=== PATIENT | female | born 1930 | race Caucasian/White ===

== ENCOUNTER 2016-09-25 10:28 | Inpatient (IN) | payer MEDICARE ==
[2016-09-25] VITALS (9 sets, daily range): BP systolic 124–152; BP diastolic 77–94; PULSE 95–140; RESP 14–22; O2SAT 90–100
[~2016-09-25] VITALS: Ht 162.6 cm; Wt 73.4 kg
[~2016-09-25 10:28] MED LIST: ASPI-973 PO; ATEN50TA PO; HYDR25TA4 PO; LAN125 PO; LATA2.5D6 OP; LISI40TA PO
--- NOTE | 2016-09-25 11:02 | ED.REPORT ---
HPI-General Illness Date of Service September 25, 2016 ED Provider: Berto Banks DO The patient is an 85 year old female with history of atrial fibrillation on carvedilol and Coumadin, pulmonary embolism, hypertension, and colon cancer, who presents to the emergency department complaining of shortness of breath that began 6 days ago. She has also experienced chest pressure. Her symptoms are exacerbated with exertion, movement, and bending. She is not able to walk more than 50 feet due to her breathing. She also reports weight gain and lower extremity swelling. She denies fever, chills, productive cough, abdominal pain, nausea or vomiting. She denies history of congestive heart failure. She is not on home oxygen. Nursing Notes Stated Complaint: CHEST PRESSURE Chief Complaint: Respiratory Distress Nursing Notes Reviewed: Yes Allergies: Coded Allergies: No Known Allergies (Verified , 02/04/14) Scheduled Carvedilol (Carvedilol) 12.5 Mg Tablet 12.5 MG PO BID Hydrochlorothiazide (Hydrochlorothiazide) 25 Mg Tablet 25 MG PO DAILY Latanoprost (Latanoprost) 2.5 Ml Drops 1 GTT OP HS Lisinopril (Lisinopril) 40 Mg Tablet 40 MG PO DAILY Warfarin Sodium (Coumadin) 2.5 Mg Tablet 2.5 MG PO Tu Warfarin Sodium (Coumadin) 5 Mg Tablet 5 MG PO SuMoWeThFrSa@1700 General Time Seen by MD: 11:00 Chief Complaint Other (dyspnea on exertion) Hx Obtained From: Patient Arrived By: Walk-in Sudden in Onset?: No Onset Occurred: 6 days ago Symptom Duration: Since onset Location: : Chest Quality: Pressure Severity: Current: Moderate Severity: Maximum: Severe Recent Healthcare: No recent doctor visit, No recent hospitalization Similar Sx Previous: No Past Medical History Past Medical History Notes: DNR Past Medical History Atrial fibrillation on carvedilol and Coumadin Colon cancer Hypertension Pulmonary embolism Iron deficiency anemia Family History Noncontributory Smoking History Former Smoker Social History Other Social History: Good social support, , Local resident Ambulatory Status Independent Review of Systems +weight gain Full Review of Systems Constitutional: Denies: Chills, Fever Respiratory: Reports: Dyspnea on exertion, Shortness of breath, Denies: Prod cough, bloody, Prod cough, brown, Prod cough, clear, Prod cough , green, Prod cough, white, Prod cough, yellow Cardiovascular: Reports: Chest pain GI: Denies: Abdominal pain, Nausea, Vomiting Musculoskeletal: Reports: Extremity swelling Complete sys rev & neg: except as marked. Physical Exam Vital Signs Vital Signs Date Time Temp Pulse Resp B/P Pulse Ox O2 Delivery O2 Flow Rate FiO2 09/25/16 13:34 122 20 94 Room Air 09/25/16 12:03 101 22 140/94 99 Nasal Cannula 2 09/25/16 10:32 36.4 140 14 152/92 100 Room Air Initial VS: Reviewed Head / Eyes: Atraumatic, Normocephalic, PERRL ENT: Mucous membranes moist, Conjunctiva normal, No scleral icterus Abdomen / GI: Soft, Non-tender, No guarding, No rebound, No distention Extremities: Vascular intact, Neuro intact Skin: Warm, Dry, No cyanosis Neurologic: Alert, Oriented, Nonfocal Psychiatric: Mood/affect normal, Behavior normal, Normal thought content General/Constitutional: Awake, Alert, Cooperative Neck: Supple Neck Vascular: Positive: JVD moderate Respiratory / Chest: Atraumatic, Breath sounds NL, Breath sounds = bilat, No respiratory distress, No rales, No rhonchi, No wheezing, No retractions, No stridor, No chest tenderness, No chest wall deformity Heart Rate / Rhythm: Positive: Irreg irregular rhythm, Tachycardia Lower Ext Edema: Positive: Bilateral 2+ Interpretation & Diagnostics Lab Results Interpretation Result Diagram: 09/25/16 1139 09/25/16 1139 Test 09/25/16 11:39 09/25/16 12:00 White Blood Count 11.1th/mm3 (3.8-10.1) Red Blood Count 4.40mil/mm3 (3.90-5.20) Hemoglobin 13.3g/dL (12.0-15.6) Hematocrit 41.9% (35.0-46.0) Mean Corpuscular Volume 95.2fL (81-100) Mean Corpuscular Hemoglobin 30.2pg (27.0-35.0) Mean Corpuscular Hemoglobin Concent 31.7% (32.0-37.0) Red Cell Distribution Width 13.7% (12.3-15.4) Platelet Count 195bil/L (150-400) Neutrophils (%) (Auto) 77.1% (40-74) Lymphocytes (%) (Auto) 14.3% (14-46) Monocytes (%) (Auto) 7.0% (4-12) Eosinophils (%) (Auto) 1.3% (0-5) Basophils (%) (Auto) 0.2% (0-3) Prothrombin Time 18.2sec (8.1-12.5) Prothromb Time International Ratio 1.68ratio Sodium Level 140mEq/L (134-144) Potassium Level 5.0mEq/L (3.5-5.2) Chloride Level 100mEq/L (97-108) Carbon Dioxide Level 22mmol/L (18-29) Blood Urea Nitrogen 41mg/dL (8-27) Creatinine 1.56mg/dL (0.57-1.00) Estimat Glomerular Filtration Rate 45mL/min (>59) Glucose Level 134mg/dL (60-99) Calcium Level 9.5mg/dL (8.5-10.1) Magnesium Level 1.7mg/dL (1.6-2.6) Total Bilirubin 0.6mg/dL (0.0-1.2) Aspartate Amino Transf (AST/SGOT) 32U/L (0-50) Alanine Aminotransferase (ALT/SGPT) 37U/L (0-32) Alkaline Phosphatase 140U/L (25-165) Troponin T < 0.010ug/L (0.0-0.011) Pro-B-Type Natriuretic Peptide 40465jo/mL (0-738) Total Protein 7.4g/dL (6.4-8.4) Albumin 4.1g/dL (3.4-5.0) Hold Diallo Top Tube Received (Received) ECG Interpretation ECG Interpretation: Atrial flutter with a variable conduction Time: 11:20 Interpreted by: ED physician X-Ray Chest Interpretation Chest Xray Interpretation: IMPRESSION: Small left pleural effusion with adjacent atelectasis. Diffuse interstitial changes Dictated by: Vic Irving M.D. on 09/25/2016 at 12:07 Interpretation / Wet Read by: Interpret - Radiologist Re-Eval/Medical Decision Med Decision/Clinical Course Appears to be decompensated congestive heart failure. Patient will be admitted. Source of Hx: Old records, Family Time of Eval: 13:35 Re-Evaluation/Progress Note: The patient dropped to 93 % when she stood up for her road test. Time of Eval: 13:40 Re-Evaluation/Progress Note: Rechecked the patient. Discussed plan for admission. All questions were addressed. Time of Eval: 14:32 Re-Evaluation/Progress Note: Discussed code status. The patient is DNR. Consultation : Referral / Consult Name: Richard Ross Consulted With: Hospitalist Requested Call at: 13:35 Call Returned at: 13:50 Manager Security: Will see patient, Agrees with eval, Agrees with plan, Accepts admit Counseled Regarding: Diagnosis, Lab results, Need for admission Discharge & Departure Primary Impression: Atrial fibrillation with rapid ventricular response Additional Impression: CHF (congestive heart failure) Congestive heart failure type: unspecified congestive heart failure type Congestive heart failure chronicity: unspecified congestive heart failure chronicity Qualified Code: I50.9 - Heart failure, unspecified Disposition: ADMITTED TO HOSPITAL Discharge Condition All VS Reviewed: Yes Condition: Stable Referrals: Charbel Donahue MD (PCP) Scribe Attestation Portions of this note were transcribed by Rayne Brownlee. I, Dr. Banks personally performed the history, physical exam and medical decision-making; I reviewed and confirmed the accuracy of the information in the transcribed note. Signed by: Amado Taylor, 09/25/2016 at 1435. copies to: Charbel Donahue MD, Timothy S DO September 25, 2016 11:01 Rayne Brownlee September 25, 2016 11:11
[2016-09-25] MEDS: MeTOProlol 1 mg/mL 5 mL Inj IVPUSH SCH ×2 (11:28→12:00)
[2016-09-25 11:45] LABS: BASOPHILS % (AUTO) 0.2 % (0-3); EOSINOPHILS % (AUTO) 1.3 % (0-5); Mean Corpuscular Hemoglobin 30.2 pg (27.0-35.0); Mean Corpuscular Volume 95.2 fL (81-100); NEUTROPHILS % (AUTO) 77.1 % (40-74); Platelet Count 195 bil/L (150-400)
[2016-09-25 12:01] LABS: INR 1.68 ratio
--- NOTE | 2016-09-25 12:10 | DRSVH ---
PROCEDURE: X-RAY CHEST ONE VIEW, PORTABLE ([id number]) INDICATIONS: cp, sob TECHNIQUE: One view of the chest was acquired. COMPARISON: [facility], CR, XR CHEST 1V PORTABLE, 01/09/2016, 1:44 PM. [facility], CR, CHEST 1VW (PORTABLE), 02/10/2014, 16:22. FINDINGS: Surgical changes and devices: None. Lungs and pleura: Small left pleural effusion with adjacent atelectasis. Diffuse interstitial change. No pneumothorax. Mediastinum: Mediastinal contours appear normal. Heart size is normal. Bones and chest wall: No suspicious bony lesions. Chronic appearing bilateral seventh rib fractures Overlying soft tissues appear unremarkable. IMPRESSION: Small left pleural effusion with adjacent atelectasis. Diffuse interstitial changes Dictated by: Vic Irving M.D. on 09/25/2016 at 12:07 Approved by: Vic Irving M.D. on 09/25/2016 at 12:09
[2016-09-25 12:54] LABS: Magnesium 1.7 mg/dL (1.6-2.6)
[2016-09-25 13:05] LABS: TROPONIN T < 0.010 ug/L (0.0-0.011)
[2016-09-25] MEDS ORDERED: Furosemide 10 mg/mL 10 mL Inj IVPUSH ONE (13:10)
[2016-09-25] MEDS ORDERED: CARV12.52 PO (14:18)
[2016-09-25] MEDS ORDERED: WARF5TAB PO (14:23)
[2016-09-25] MEDS ORDERED: WARF2.5T PO (14:23)
[2016-09-25] MEDS ORDERED: Alum-Mag Hydrox-Simeth 30 mL Suspension PO PRN ×2 (14:35→18:30)
[2016-09-25] MEDS ORDERED: Ondansetron 2 mg/mL 2 mL Inj IVPUSH PRN ×2 (14:35→18:30)
--- NOTE | 2016-09-25 14:40 | NUR ---
Admit to room 3023 Pt arrived in w/ch from ER Son present at time of arrival Pt able to stand for weight and amb to bed. A&Ox4 Oriented to room, call light. Placed tele and alerted electronic device monitor
--- NOTE | 2016-09-25 15:10 | NUR ---
Lasix Not given in ER, Texted MD to clarify if should be given. Addendum: 09/25/16 at 1513 by BERHANE HOLDEN RN MD into see patient
--- NOTE | 2016-09-25 17:43 | NUR ---
UA/clarify teresaix JOSE sent Sent text to clarify if MD wanted lasix for patient. Addendum: 09/25/16 at 1745 by BERHANE HOLDEN RN New orders coming thru now.
[2016-09-25 18:27] LABS: APPEARANCE,URINE CLEAR (CLEAR,HAZY); COLOR,URINE YELLOW (YELLOW); OCCULT BLOOD,URINE TRACE (NEGATIVE); UROBILINOGEN,URINE NORMAL (NORMAL)
--- NOTE | 2016-09-25 18:27 | PCM.HPMED ---
Subjective Date of Service September 25, 2016 Primary Provider: Admitting Physician: Richard Ross Primary Care Physician: Colt Hussein MD Attending Physician: Richard Ross Chief Complaint: shortness of breath History of Present Illness: 85-year-old female with a history of chronic atrial fibrillation for 20+ years, on Coumadin, colon cancer post right colon resection presents with 4 days of increasing shortness of breath and generalized weakness. She also reports increase weight and bilateral lower extremity edema over the past few months. Her symptoms are exacerbated with exertion. She called her PCP's office today and was instructed to come to the hospital. On presentation to the ED she was found to be in Afirb with RVR. She reportedly received 3 rounds of IV Lopressor before lowering her heart rate. IV Lasix was ordered but not given yet. She denies any lower extremity pain or pleuritic chest pain. She does report chest pain with exertion that has been going on for the past 2 years and is not any worse than usual. She denies any chest pain at rest. Review of Systems: Constitutional: Negative, except as otherwise mentioned in the history above. Ophthalmologic: Negative, except as otherwise mentioned in the history above. Cardiovascular: Negative, except as otherwise mentioned in the history above. Respiratory: Negative, except as otherwise mentioned in the history above. Gastrointestinal: Negative, except as otherwise mentioned in the history above. Genitourinary: Negative, except as otherwise mentioned in the history above. Musculoskeletal: Negative, except as otherwise mentioned in the history above. Neurological: Negative, except as otherwise mentioned in the history above. Psychiatric: Negative, except as otherwise mentioned in the history above. Hematologic/Lymphatic: Negative, except as otherwise mentioned in the history above. Allergic/Immunologic: Negative, except as otherwise mentioned in the history above. Allergies Coded Allergies: No Known Allergies (Verified , 02/04/14) Home Medications Warfarin Sodium 2.5 Mg Tablet (Coumadin) 2.5 Mg PO Tu Warfarin Sodium 5 Mg Tablet (Coumadin) 5 Mg PO SuMoWeThFrSa@1700 Carvedilol 12.5 Mg Tablet 12.5 Mg PO BID Lisinopril 40 Mg Tablet 40 Mg PO DAILY Hydrochlorothiazide 25 Mg Tablet 25 Mg PO DAILY Latanoprost 2.5 Ml Drops 1 Gtt OP HS Exam Vital Signs & I/O Vital Sign- Last 8 Hours Date Time Temp Pulse Resp B/P Pulse Ox O2 Delivery O2 Flow Rate FiO2 09/25/16 17:42 36.3 95 18 135/85 91 Room Air 09/25/16 15:16 105 09/25/16 15:14 105 09/25/16 14:48 36.3 106 20 139/82 93 Room Air 09/25/16 13:34 122 20 94 Room Air 09/25/16 12:03 101 22 140/94 99 Nasal Cannula 2 Lab & Micro Results Laboratory Tests Test 09/25/16 11:39 09/25/16 12:00 09/25/16 17:43 09/25/16 17:59 White Blood Count 11.1th/mm3 (3.8-10.1) Red Blood Count 4.40mil/mm3 (3.90-5.20) Hemoglobin 13.3g/dL (12.0-15.6) Hematocrit 41.9% (35.0-46.0) Mean Corpuscular Volume 95.2fL (81-100) Mean Corpuscular Hemoglobin 30.2pg (27.0-35.0) Mean Corpuscular Hemoglobin Concent 31.7% (32.0-37.0) Red Cell Distribution Width 13.7% (12.3-15.4) Platelet Count 195bil/L (150-400) Neutrophils (%) (Auto) 77.1% (40-74) Lymphocytes (%) (Auto) 14.3% (14-46) Monocytes (%) (Auto) 7.0% (4-12) Eosinophils (%) (Auto) 1.3% (0-5) Basophils (%) (Auto) 0.2% (0-3) Prothrombin Time 18.2sec (8.1-12.5) Prothromb Time International Ratio 1.68ratio Sodium Level 140mEq/L (134-144) Potassium Level 5.0mEq/L (3.5-5.2) Chloride Level 100mEq/L (97-108) Carbon Dioxide Level 22mmol/L (18-29) Blood Urea Nitrogen 41mg/dL (8-27) Creatinine 1.56mg/dL (0.57-1.00) Estimat Glomerular Filtration Rate 45mL/min (>59) Glucose Level 134mg/dL (60-99) Calcium Level 9.5mg/dL (8.5-10.1) Magnesium Level 1.7mg/dL (1.6-2.6) Total Bilirubin 0.6mg/dL (0.0-1.2) Aspartate Amino Transf (AST/SGOT) 32U/L (0-50) Alanine Aminotransferase (ALT/SGPT) 37U/L (0-32) Alkaline Phosphatase 140U/L (25-165) Troponin T < 0.010ug/L (0.0-0.011) Pro-B-Type Natriuretic Peptide 60694bd/mL (0-738) Total Protein 7.4g/dL (6.4-8.4) Albumin 4.1g/dL (3.4-5.0) Hold Diallo Top Tube Received (Received) Hold Urine Received (Received) Urine Color Yellow (YELLOW) Urine Appearance Clear (CLEAR,HAZY) Urine pH 5.0 (5.0-8.0) Urine Specific [place] 1.020 (1.003-1.035) Urine Protein Tracemg/dL (NEG,TRACE) Urine Glucose (UA) Negativemg/dL (NEGATIVE) Urine Ketones Negativemg/dL (NEGATIVE) Urine Occult Blood Trace (NEGATIVE) Urine Nitrite Negative (NEGATIVE) Urine Bilirubin Negative (NEGATIVE) Urine Urobilinogen Normalmg/dL (NORMAL) Urine Leukocyte Esterase Negative (NEGATIVE) Urine RBC 0-2/hpf (0-2) Urine WBC 0-5/hpf (0-5) Urine Epithelial Cells Few/hpf (NONE-MOD) Urine Crystals None seen (NONE SEEN) Urine Bacteria None/hpf (NONE-FEW) Urine Hyaline Casts None/lpf (NONE) Urine Granular Casts None seen (NONE SEEN) Urine Waxy Casts None seen (NONE SEEN) Urine Red Blood Cell Casts None seen (NONE SEEN) Urine White Blood Cell Casts None seen (NONE SEEN) Urine Mucus None seen (None Seen) Urine Trichomonas None seen (NONE SEEN) Urine Yeast None (NONE SEEN) Urinalysis Comment None Urine Culture Reflexed Not indicated Result Diagram: 09/25/16 1139 09/25/16 1139 PMH 1. Chronic atrial fibrillation. 2. Chronic anemia. 3. Chronic renal insufficiency. 4. Coma. 5. Known gallstones. 6. Reported history of peripheral vascular disease. 7. Colon adenocarcinoma post right colon resection in 2014 Family History denies any family history of heart disease or cancers Social History Hx Alcohol Use: No Hx Substance Use: No Smoking Status: Former Smoker (quit 30 years ago) Exam Vital Signs Vital Sign - Last Date Time Temp Pulse Resp B/P Pulse Ox O2 Delivery O2 Flow Rate FiO2 09/25/16 17:42 36.3 95 18 135/85 91 Room Air 09/25/16 12:03 2 General: Alert, Oriented X3, Cooperative, No Acute Distress Head: Normal Eyes: PERRLA, EOMI, Scleral Anicteric Nose: Mucous Membr Moist/[place] Mouth: Mucous Membr Moist/[place] Neck: Supple Chest & Lungs: Chest Wall Normal, Crackles (mild bibasilar) Cardiovascular: Other (irreg/irreg) Pulses: NL carotid, radial, femoral, DP, PT Abdomen: Non-tender, Non-distended, Normoactive bowel tones, Soft Extremities: Edema (1+ pitting edema in LE bilat) Skin: Other (no ulcer/rash) Neurological: Grossly Neurologically Intact, Cranial Nerves 2-12 Intact, Normal Speech, Strength Normal 4/4 ext (bilat) Lymphatic: Other Lymph Nodes (no sig lymphadenopathy) Lab and Diagnostics Result Diagram: 09/25/16 1139 09/25/16 1139 X-Rays, CTs and MRIs Date of Service: 09/25/16 1043 PROCEDURE: X-RAY CHEST ONE VIEW, PORTABLE ([id number]) IMPRESSION: Small left pleural effusion with adjacent atelectasis. Diffuse interstitial changes Dictated by: Vic Irving M.D. on 09/25/2016 at 12:07 Approved by: Vic Irving M.D. on 09/25/2016 at 12:09 12-lead ECG afib at rate of about 120bpm Assessment & Plan 85-year-old female with a history of chronic atrial fibrillation on Coumadin presents with 4 days of increasing shortness of breath with exertion and generalized weakness. # Acute on chronic atrial fibrillation with acute rapid ventricular response. present on admission - Continue with home dose Atenolol - IV metoprolol prn - Tele - Check TSH - Check Echo # Acute fluid overload. present on admission. Possible acute CHF, unclear if systolic or diastolic at this point given patient does not carry such diagnosis in the past. - Will give IV Lasix 40 x1 - Check echocardiogram as noted above - Trop negative and reassuring. Will repeat in am - Continue with home dose HCTZ in am - Consider further IV Lasix in am pending clinical course and response to Lasix tonight - Strict I/O and daily weight # Chronic kidney disease. - Appears fairly stable and at baseline - Avoid nephrotoxic medications - Followup closely on IV Lasix # History of hypertension. stable - Continue with home dose Lisinopril - Followup renal function closely # Anticoagulation with Coumadin - INR subtherapeutic on admission - SC heparin for DVT PPx for now - Continue with Coumadin (dose adjustment per pharmacy) - Followup daily INR # History of colon cancer post resection. Presumed stable - Further followup as outpatient Expected length of hospital stay is greater than 2 midnights and likely 2-3 days GI Prophylaxis: Not indicated VTE Prophylaxis: Sub-Q Heparin (Unfractionated) VTE Mechanical Devices: Venous Foot Pump Resuscitation Status: DNR/DNI:Do Not Resuscitate/Intubate (discussed and verified with patient) Time spent 60 min Richard Ross September 25, 2016 18:27
[2016-09-25] MEDS ORDERED: Polyethylene Glycol (PEG) 17 Gm Powder PO PRN (18:30)
[2016-09-25] MEDS ORDERED: Furosemide 10 mg/mL 4 mL Inj IVPUSH ONE (18:30)
--- NOTE | 2016-09-25 19:23 | PCM.CONPHA ---
Subjective shortness of breath Reason for Pharmacy Consult: Anticoagulation Management Objective Vital Signs Date Time Temp Pulse Resp B/P Pulse Ox O2 Delivery O2 Flow Rate FiO2 09/25/16 17:42 36.3 95 18 135/85 91 Room Air 09/25/16 15:16 105 09/25/16 15:14 105 09/25/16 14:48 36.3 106 20 139/82 93 Room Air 09/25/16 13:34 122 20 94 Room Air 09/25/16 12:03 101 22 140/94 99 Nasal Cannula 2 09/25/16 10:32 36.4 140 14 152/92 100 Room Air Weight (Kilograms): 80.000 Height (Feet): 5 Height (Inches): 4.00 Test 09/25/16 11:39 09/25/16 12:00 09/25/16 17:43 09/25/16 17:59 White Blood Count 11.1th/mm3 (3.8-10.1) Red Blood Count 4.40mil/mm3 (3.90-5.20) Hemoglobin 13.3g/dL (12.0-15.6) Hematocrit 41.9% (35.0-46.0) Mean Corpuscular Volume 95.2fL (81-100) Mean Corpuscular Hemoglobin 30.2pg (27.0-35.0) Mean Corpuscular Hemoglobin Concent 31.7% (32.0-37.0) Red Cell Distribution Width 13.7% (12.3-15.4) Platelet Count 195bil/L (150-400) Neutrophils (%) (Auto) 77.1% (40-74) Lymphocytes (%) (Auto) 14.3% (14-46) Monocytes (%) (Auto) 7.0% (4-12) Eosinophils (%) (Auto) 1.3% (0-5) Basophils (%) (Auto) 0.2% (0-3) Prothrombin Time 18.2sec (8.1-12.5) Prothromb Time International Ratio 1.68ratio Sodium Level 140mEq/L (134-144) Potassium Level 5.0mEq/L (3.5-5.2) Chloride Level 100mEq/L (97-108) Carbon Dioxide Level 22mmol/L (18-29) Blood Urea Nitrogen 41mg/dL (8-27) Creatinine 1.56mg/dL (0.57-1.00) Estimat Glomerular Filtration Rate 45mL/min (>59) Glucose Level 134mg/dL (60-99) Calcium Level 9.5mg/dL (8.5-10.1) Magnesium Level 1.7mg/dL (1.6-2.6) Total Bilirubin 0.6mg/dL (0.0-1.2) Aspartate Amino Transf (AST/SGOT) 32U/L (0-50) Alanine Aminotransferase (ALT/SGPT) 37U/L (0-32) Alkaline Phosphatase 140U/L (25-165) Troponin T < 0.010ug/L (0.0-0.011) Pro-B-Type Natriuretic Peptide 89140dn/mL (0-738) Total Protein 7.4g/dL (6.4-8.4) Albumin 4.1g/dL (3.4-5.0) Hold Diallo Top Tube Received (Received) Hold Urine Received (Received) Urine Color Yellow (YELLOW) Urine Appearance Clear (CLEAR,HAZY) Urine pH 5.0 (5.0-8.0) Urine Specific [place] 1.020 (1.003-1.035) Urine Protein Tracemg/dL (NEG,TRACE) Urine Glucose (UA) Negativemg/dL (NEGATIVE) Urine Ketones Negativemg/dL (NEGATIVE) Urine Occult Blood Trace (NEGATIVE) Urine Nitrite Negative (NEGATIVE) Urine Bilirubin Negative (NEGATIVE) Urine Urobilinogen Normalmg/dL (NORMAL) Urine Leukocyte Esterase Negative (NEGATIVE) Urine RBC 0-2/hpf (0-2) Urine WBC 0-5/hpf (0-5) Urine Epithelial Cells Few/hpf (NONE-MOD) Urine Crystals None seen (NONE SEEN) Urine Bacteria None/hpf (NONE-FEW) Urine Hyaline Casts None/lpf (NONE) Urine Granular Casts None seen (NONE SEEN) Urine Waxy Casts None seen (NONE SEEN) Urine Red Blood Cell Casts None seen (NONE SEEN) Urine White Blood Cell Casts None seen (NONE SEEN) Urine Mucus None seen (None Seen) Urine Trichomonas None seen (NONE SEEN) Urine Yeast None (NONE SEEN) Urinalysis Comment None Urine Culture Reflexed Not indicated Assessment/Plan Assessment/Plan WARFARIN DOSING PER PHARMACY Indication: Afib Home dose: 2.5mg Friday, 5mg AOD INR Goal: 2-3 CHADsVASc: 5 Additional anticoagulation: SQ heparin until INR > 2 per MD DI: N/A Hct/Plt: 41.9/195 Date INR 1.68 P: Pt has not had dose today Will initiate home dose of warfarin 5mg x 1 tonight Serial INRS are ordered Pharmacy will continue to monitor, thank you! Kelly Mckeon PharmD September 25, 2016 19:23
--- NOTE | 2016-09-25 20:08 | PCM.ADCARE ---
Advance Care Planning Note Purpose of Encounter: Goals of care Parties in Attendance: patient Decisional Capacity: Decisional Subjective: GONZALEZ Objective: General: Alert, Oriented X3, Cooperative, No Acute Distress Head: Normal Eyes: PERRLA, EOMI, Scleral Anicteric Nose: Mucous Membr Moist/[place] Mouth: Mucous Membr Moist/[place] Neck: Supple Chest & Lungs: Chest Wall Normal, Crackles (mild bibasilar) Cardiovascular: Other (irreg/irreg) Pulses: NL carotid, radial, femoral, DP, PT Abdomen: Non-tender, Non-distended, Normoactive bowel tones, Soft Extremities: Edema (1+ pitting edema in LE bilat) Skin: Other (no ulcer/rash) Neurological: Grossly Neurologically Intact, Cranial Nerves 2-12 Intact, Normal Speech, Strength Normal 4/4 ext (bilat) Lymphatic: Other Lymph Nodes (no sig lymphadenopathy) Goals of Care Determinations: patient hopes to make it to her 86th birthday and wants every non-invasive measure possible to make this happen. However, she insists that she is DNR/DNI and if conservative care is not adequate to her life she is ready to pass away. Plan: Continue with current medical care with hope of returning to her current living situation CODE STATUS: DNR/DNI Time Spent Adv.Care Plannin min Richard Ross September 25, 2016 20:08
[2016-09-26] VITALS (7 sets, daily range): BP systolic 147–161; BP diastolic 81–101; PULSE 69–134; RESP 16–32; O2SAT 92–96
[2016-09-26] MEDS: Heparin 5,000 Unit/mL Inj SUBQ SCH ×3 (00:37→16:10)
[2016-09-26 06:37] LABS: Mean Corpuscular Hemoglobin 30.2 pg (27.0-35.0); Mean Corpuscular Volume 95.3 fL (81-100)
[2016-09-26 06:47] LABS: INR 1.85 ratio
[2016-09-26 07:16] LABS: Magnesium 1.5 mg/dL (1.6-2.6)
[2016-09-26 07:20] LABS: TROPONIN T < 0.010 ug/L (0.0-0.011)
[2016-09-26] MEDS ORDERED: Lisinopril 40 Tablet PO SCH (08:30)
[2016-09-26] MEDS ORDERED: Diltiazem 5 mg/mL 5 mL Inj IVPUSH PRN (08:35)
[2016-09-26] MEDS ORDERED: Digoxin 0.25 mg/mL 2 mL Inj IV ONE (08:40)
--- NOTE | 2016-09-26 09:33 | NUR ---
HR/RR Pts HR and RR high this AM, reported to . IV push Dilt and Dig ordered. Pt asymptomatic. See VS for report. Will continue to monitor. Addendum: 09/26/16 at 1139 by MARK ANTHONY FELDER RN Dilt given x1, HR maintains in the 90s. Will continue to monitor
--- NOTE | 2016-09-26 12:05 | DRSVH ---
[facility] [address] [place] [address] Echocardiogram Report Name: MATHIEU NUNEZ WStudy Date: 09/26/2016 Height: 64 in Hospital Exam Location: [facility] Weight: 173 lb Gender: Female BSA: 1.8 m2 : 1930 Age: 85 yrs BP: 157/95 mmHg Reason For Study: SOB, AFIB Ordering Physician: HOSPITALIST [facility] Performed By: Mary Amaya Referring Physician: Dr. Blaine Hussein Interpretation Summary Left ventricular systolic function is moderately reduced with the left ventricular ejection fraction visually estimated to be 30-40% with considerable qwci-mw-lxzu variability and appears slightly worse compared to the previous study. There is moderate global hypokinesis without obvious focal wall motion abnormalities. The left ventricle is normal in size. 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 The right ventricle is normal size but right ventricular systolic function is mildly reduced and appears slightly worse compared to the previous study. There is moderate-severe pulmonary hypertension with the right ventricular systolic pressure estimated at 58 mmHg assuming a right atrial pressure of 15 mm Hg, which is higher compared to the previous study. The left atrium is severely dilated and has significantly increased in size since the prior echo exam. The right atrium is mildly dilated but appears unchanged compared to the previous study. There is moderate mitral regurgitation, moderate to severe tricuspid regurgitation, and mild aortic regurgitation that all appear essentially unchanged compared to the previous study. There is a moderate left-sided pleural effusion and a small right-sided pleural effusion which are new compared to the previous study. The patient was in atrial fibrillation with heart rates between 74-123 bpm during the exam which is slightly slower compared to the previous study. Procedure: A two-dimensional transthoracic echocardiogram with color flow and Doppler was performed. The study quality was technically adequate. Comparison is made with the echocardiogram of 02/11/2014. The patient was in atrial fibrillation with heart rates between 74-123 bpm during the exam. This is slightly slower compared to the previous study. Left Ventricle: The left ventricle is normal in size. There is normal left ventricular wall thickness. There is no thrombus. Left ventricular systolic function is moderately reduced. Left ventricular ejection fraction is estimated to be 30-40% with considerable qnid-yp-iyqd variability. This is slightly worse compared to the previous study. There is moderate global hypokinesis of the left ventricle. There are no focal wall motion abnormalities. Diastolic function could not be accurately assessed due to atrial fibrillation. Right Ventricle: The right ventricle is normal size. Right ventricular systolic function is mildly reduced. This is slightly worse compared to the previous study. Atria: The left atrium is severely dilated. The left atrium has significantly increased in size since the prior echo exam. The right atrium is mildly dilated. This is unchanged compared to the previous study. There is no Doppler evidence for an interatrial shunt. Mitral Valve: There is mild mitral annular calcification. The mitral valve leaflets are slightly calcified. The mitral valve leaflets appear mildly thickened, but open well. There is moderate mitral regurgitation. This is unchanged compared to the previous study. Aortic Valve: The aortic valve is trileaflet. The aortic valve is mildly calcified. The aortic valve opens well. There is mild aortic regurgitation. This is unchanged compared to the previous study. Tricuspid Valve: The tricuspid valve is normal in structure but is abnormal in function. There is moderate to severe tricuspid regurgitation. This is unchanged compared to the previous study. There is moderate-severe pulmonary hypertension. The right ventricular systolic pressure is estimated at 58 mmHg assuming a right atrial pressure of 15 mm Hg. This is higher compared to the previous study. Pulmonic Valve: The pulmonic valve leaflets are thin and pliable; valve motion is normal. There is trace pulmonic regurgitation. This is unchanged compared to the previous study. Great Vessels: The aortic root is normal size. The ascending aorta is normal in size. The aortic arch is normal in size. The pulmonary artery is normal size. The IVC is dilated (diameter is greater than 2.1 cm) and it collapses less than 50% with a sniff. This suggests a high right atrial pressure of 15 mm Hg. Pericardium/ Pleura There is no pericardial effusion. There is a moderate left-sided pleural effusion. There is a small right-sided pleural effusion. This is new compared to the previous study. MMode/2D Measurements & Calculations LVIDd: 4.9 cmLA dimension: 4.8 cm RA long axis: 6.0 cm LVOT diam: 1.9 cm LVIDs: 4.0 cm AoV Openin.5 cm FS: 18.3 % LA A2 area: 25.7 cm RA area: 21.3 cm Ao root diam EPSS: 1.8 cm LA A4 area: 27.9 cm RA vol: 64.1 ml IVSd: 0.68 cmLA length (vol) RA : 34.9 ml/m2 asc Aorta Diam LVPWd : 0.9cm LA vol: 93.5 ml Ao Arch Diam (Prox LA vol index Trans): 2.9 cm IVC diam: 2.3 cm EDV(MOD-sp2) LV alas. diameter/BSA LV sys. diameter/BSA RVD1 (basal) (cm/m^2): 2.7 (cm/m^2): 2.2 : 3.9 cm ESV(MOD-sp2) EF(MOD-sp2) RVD2 (mid) TAPSE: 0.80 cm : 2.5 cm Doppler Measurements & Calculations Ao V2 max: 98.0 cm/sec MR ERO Med Peak E' Adrián TR max adrián Ao max P.8 mmHg : 327.8 cm/sec Ao mean P.3 mmHg : 0.06 2m Lat Peak E' Adrián TR max PG LVOT Max Adrián : 43.1 mmHg : 61.5 cm/sec PA V2 max : 51.5 cm/sec GUEVARA(I,D): 2.3 cm PA mean PG sev ratio: 0.78 : 0.57 mmHg AI P1/2t: 678.2 msec PA Accel Time AI dec slope : 0.11 sec : 177.4 cm/s2c Ao V2 mean: 70.8 cm/sec LV V1 max PG MR flow rate PA V2 mean Ao V2 VTI: 16.4 cm : 32.4 cm3/sec : 34.5 cm/sec GUEVARA(V,D): 1.8 cm2 LV V1 VTI MR PISA radius : 12.8 cm GUEVARA indexed to BSA (cm^2/m^2): 1.2 Reading Physician:12:04 PM
--- NOTE | 2016-09-26 13:35 | PCM.PHAPRO ---
Progress shortness of breath Warfarin maintenance dose. INR 1.85 Indication: A.Fib Goal INR 2-3 Patient weekly home warf. dose 5mg x 6 days, 2.5mg x 1 day No missed doses prior to hosp. admission. Date August 26-Sep INR 1.68 1.85 INR change 0.17 Warf Dose 5 MG 6MG Plan: INR subtherapeutic x 2 days Increase warfarin dose 20% today to 6mg pharmacy to continue to monitor INR and dose warfarin Bhakti Santos Pharm.D Sep 26, 2016 13:35
[2016-09-26] MEDS ORDERED: MeTOProlol XL 50 mg ER24 Tablet PO SCH (13:45)
[2016-09-26] MEDS: MeTOProlol XL 50 mg ER24 Tablet PO SCH ×2 (15:17→20:14)
--- NOTE | 2016-09-26 16:00 | PCM.PNMED ---
Subjective Date of Service Sep 26, 2016 Subjective Patient states she is feeling better. Does not feel palpitations. Denies shortness of breath feels better today although she has not been up moving around. No chest pain, and minimal to no dyspnea, no nausea or vomiting Exam Vital Signs Vital Sign - Last Date Time Temp Pulse Resp B/P Pulse Ox O2 Delivery O2 Flow Rate FiO2 09/26/16 13:36 36.4 88 20 161/89 92 Nasal Cannula 2.00 Intake and Output 09/25/16 09/25/16 09/26/16 Cumulative From/Thru 15:00 23:00 07:00 09/25/16 10:32 - 09/26/16 06:16 Intake Total 200 ml 250 ml 450 ml Output Total 100 ml 1050 ml 1150 ml Balance 100 ml -800 ml -700 ml Intake Oral 200 ml 250 ml 450 ml Output Urine Total 100 ml 1050 ml 1150 ml # Voids 1 1 # Bowel Movements 0 0 Exam Gen.- A+ O 3 no apparent distress. Eyes- open conjunctiva clear, pupils equal nonicteric ENT- ears normal, nose normal hearing intact Neck- supple/trach midline CVS- RRR no murmur or gallop, tachycardic, perhaps 1+ edema of the legs Lungs CTA diminished breath sounds locally GI- NABS/NT soft, generous pannus Musc- moving 4 no obvious deformity Neuro- cranial nerves II through XII intact to gross examination, nonfocal Skin- warm and dry, no rashes/lesions/wounds noted Psych- pleasant and appropriate, Lab and Diagnostics Result Diagram: 09/26/16 0600 09/26/16 0600 X-Rays, CTs and MRIs Date of Service: 09/25/16 1043 PROCEDURE: X-RAY CHEST ONE VIEW, PORTABLE ([id number]) IMPRESSION: Small left pleural effusion with adjacent atelectasis. Diffuse interstitial changes Dictated by: Vic Irving M.D. on 09/25/2016 at 12:07 Approved by: Vic Irving M.D. on 09/25/2016 at 12:09 12-lead ECG afib at rate of about 120bpm Cardiac Echo Impressions Echocardiogram Report: Pablo Underwood on 09/26/2016 Left ventricular systolic function is moderately reduced with the left ventricular ejection fraction visually estimated to be 30-40% with considerable owdz-ca-fzfb variability and appears slightly worse compared to the previous study. There is moderate global hypokinesis without obvious focal wall motion abnormalities. The left ventricle is normal in size. 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 The right ventricle is normal size but right ventricular systolic function is mildly reduced and appears slightly worse compared to the previous study. There is moderate-severe pulmonary hypertension with the right ventricular systolic pressure estimated at 58 mmHg assuming a right atrial pressure of 15 mm Hg, which is higher compared to the previous study. The left atrium is severely dilated and has significantly increased in size since the prior echo exam. The right atrium is mildly dilated but appears unchanged compared to the previous study. There is moderate mitral regurgitation, moderate to severe tricuspid regurgitation, and mild aortic regurgitation that all appear essentially unchanged compared to the previous study. There is a moderate left-sided pleural effusion and a small right-sided pleural effusion which are new compared to the previous study. The patient was in atrial fibrillation with heart rates between 74-123 bpm during the exam which is slightly slower compared to the previous study. Assessment & Plan 85-year-old female with a history of chronic atrial fibrillation on Coumadin presents with 4 days of increasing shortness of breath with exertion and generalized weakness. 09/26 medically complex patient meeting for first time. Patient still having A. fib with RVR, giving IV diltiazem when necessary with 1 time dose digoxin, changing Coreg to metoprolol with when necessary dosing, changing to furosemide stopping hydrochlorothiazide to allow for or vigorous BP control with heart rate control. #afib w/ RVR-changing to metoprolol when necessary by mouth dosing, one-time doses diltiazem/digoxin 09/26 - Tele - TSH 1.3 09/26 - Echo EF 30-40% unchanged 09/26 # acute/chronic systolic CHF, EF stable approximately 30-40% - Stopping HCTZ to give room for BP control, furosemide twice a day 09/26 - Strict I/O and daily weight #ac/ckd3 Baseline CR 1.4, now 1.7, follow closely while diuresing # hypertension. stable-patient rate control medications for now and diuretics. Stopping HCTZ/lisinopril adding when necessary hydralazine would reach for amlodipine if blood pressure still high. # Anticoagulation with Coumadin - INR subtherapeutic on admission - SC heparin for DVT PPx for now - Continue with Coumadin (dose adjustment per pharmacy) - Followup daily INR # History of colon cancer post resection. Presumed stable - Further followup as outpatient Expected length of hospital stay is greater than 2 midnights and likely 2-3 days GI Prophylaxis: Not indicated VTE Prophylaxis: Sub-Q Heparin (Unfractionated) VTE Mechanical Devices: Venous Foot Pump Resuscitation Status: DNR/DNI:Do Not Resuscitate/Intubate (discussed and verified with patient) Keon Dee MD Sep 26, 2016 16:00
--- NOTE | 2016-09-26 16:32 | NUR ---
Social Work Note - Initial Assessment Keli Damon is a 85 yr old admitted for Afib with RVR. EMR reviewed: Pt has [employer] plan. Her PCP is Dr Hussein. No LTC insurance, no VA benefits. DPOA in EMR. Readmit score is 2. See attached CM initial assessment. PERSONAL ASSISTANT met with pt - introduced D/C planning and explained SW role. Pt lives at [address]. She has help with meals and chores. She is independent at baseline, uses no DME. She states that she likes where she lives, has family living nearby for support. Pt is up independent in her room. Pt denies any d/c needs. PERSONAL ASSISTANT provided support and will follow if needs arise. Plan: Home to [facility] apartment with transportation provided by family. SANDRITA Chao Addendum: 09/26/16 at 1635 by NELL LUCERO SS Amended: Links added.
--- NOTE | 2016-09-26 19:08 | NUR ---
Oxygen Pt maintained saturation of 92% and greater all shift on RA. Denies SOB. Is independent in room, uses call light appropriately.
[2016-09-27] VITALS (8 sets, daily range): BP systolic 121–182; BP diastolic 63–103; PULSE 66–104; RESP 16–18; O2SAT 91–95
[2016-09-27] MEDS: Heparin 5,000 Unit/mL Inj SUBQ SCH ×2 (01:23→08:46)
--- NOTE | 2016-09-27 05:00 | NUR ---
Sleep/incontinence/O2 sats PT slept well all night, hard to wake at 0030hrs for heparin injection, around 0330 she woke up and voided all over the floor on both sides of the bed, stated she forgot where she was when she woke up and didnt make it to the BR. She was A&O when expert medical writer found her, no further issues. She has stayed in the mid 90's on RA all night.
[2016-09-27 06:49] LABS: INR 2.61 ratio
[2016-09-27 06:53] LABS: TROPONIN T 0.01 ug/L (0.0-0.011)
[2016-09-27 07:05] LABS: Magnesium 1.4 mg/dL (1.6-2.6)
[2016-09-27] MEDS: MeTOProlol XL 50 mg ER24 Tablet PO SCH ×2 (08:46→21:06)
--- NOTE | 2016-09-27 11:15 | PCM.PHAPRO ---
Progress Date of Service: Sep 27, 2016 Warfarin dosing INR = 2.61 Pt continues on warfarin for afib. INR increased rapidly from 1.85 to 2.61 possibly from apparent CHF exacerbation. Will cautiously give warfarin 1mg PO tonight. INRs ordered. Pharmacy will follow. Date August 26-Sep 27-Sep INR 1.68 1.85 2.61 INR change 0.17 0.76 Warf Dose 5 MG 6MG 1 MG Shannon Jolly PharmD Sep 27, 2016 11:15
[2016-09-27] MEDS ORDERED: Magnesium Sulf 4 Gm/100 mL D5W Premix IV ONE (13:15)
[2016-09-27] MEDS ORDERED: 0.9% Sodium Chloride 100 ML ONE (14:17)
--- NOTE | 2016-09-27 15:43 | PCM.PNMED ---
Subjective Date of Service Sep 27, 2016 Subjective Patient denying chest pain, dyspnea, nausea or vomiting. Already asking anxious to go home. Feels like she is off a lot of fluid. Exam Vital Signs Vital Sign - Last Date Time Temp Pulse Resp B/P Pulse Ox O2 Delivery O2 Flow Rate FiO2 09/27/16 12:34 36.6 104 18 131/81 93 Room Air 09/26/16 13:36 2.00 Intake and Output 09/26/16 09/26/16 09/27/16 Cumulative From/Thru 15:00 23:00 07:00 09/25/16 10:32 - 09/27/16 06:33 Intake Total 570 ml 250 ml 1270 ml Output Total 1150 ml 1800 ml 4100 ml Balance -580 ml -1550 ml -2830 ml Intake Oral 570 ml 250 ml 1270 ml Output Urine Total 1150 ml 1800 ml 4100 ml # Voids 1 # Bowel Movements 1 1 Exam Gen.- A+ O 3 no apparent distress. Eyes- open conjunctiva clear, pupils equal nonicteric ENT- ears normal, nose normal hearing intact Neck- supple/trach midline CVS- RRR no murmur or gallop, tachycardic, perhaps 1+ edema of the legs Lungs CTA diminished breath sounds locally GI- NABS/NT soft, generous pannus Musc- moving 4 no obvious deformity Neuro- cranial nerves II through XII intact to gross examination, nonfocal Skin- warm and dry, no rashes/lesions/wounds noted Psych- pleasant and appropriate, Lab and Diagnostics Result Diagram: 09/26/16 0600 09/27/16 0602 X-Rays, CTs and MRIs Date of Service: 09/25/16 1043 PROCEDURE: X-RAY CHEST ONE VIEW, PORTABLE ([id number]) IMPRESSION: Small left pleural effusion with adjacent atelectasis. Diffuse interstitial changes Dictated by: Vic Irving M.D. on 09/25/2016 at 12:07 Approved by: Vic Irving M.D. on 09/25/2016 at 12:09 12-lead ECG afib at rate of about 120bpm Cardiac Echo Impressions Echocardiogram Report: Pablo Underwood on 09/26/2016 Left ventricular systolic function is moderately reduced with the left ventricular ejection fraction visually estimated to be 30-40% with considerable nprm-wm-esja variability and appears slightly worse compared to the previous study. There is moderate global hypokinesis without obvious focal wall motion abnormalities. The left ventricle is normal in size. 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 The right ventricle is normal size but right ventricular systolic function is mildly reduced and appears slightly worse compared to the previous study. There is moderate-severe pulmonary hypertension with the right ventricular systolic pressure estimated at 58 mmHg assuming a right atrial pressure of 15 mm Hg, which is higher compared to the previous study. The left atrium is severely dilated and has significantly increased in size since the prior echo exam. The right atrium is mildly dilated but appears unchanged compared to the previous study. There is moderate mitral regurgitation, moderate to severe tricuspid regurgitation, and mild aortic regurgitation that all appear essentially unchanged compared to the previous study. There is a moderate left-sided pleural effusion and a small right-sided pleural effusion which are new compared to the previous study. The patient was in atrial fibrillation with heart rates between 74-123 bpm during the exam which is slightly slower compared to the previous study. Assessment & Plan 85-year-old female with a history of chronic atrial fibrillation on Coumadin presents with 4 days of increasing shortness of breath with exertion and generalized weakness. 09/26 medically complex patient meeting for first time. Patient still having A. fib with RVR, giving IV diltiazem when necessary with 1 time dose digoxin, changing Coreg to metoprolol with when necessary dosing, changing to furosemide stopping hydrochlorothiazide to allow for or vigorous BP control with heart rate control. 09/27 patient diuresing well, heart rate under much better control, blood pressure still high I am increasing her metoprolol one more time probably going to discharge her 09/28. Renal function stable cr 1.67, I think I will decrease/ stop the furosemide today. I am keeping her here to determine what the optimal rate of diuresis will be. I think it will be furosemide 40 mg daily for now and to watch the blood pressure. Explained this to both the patient and her daughter who were at the bedside. #Hypomagnesemia-replace and monitor #afib w/ RVR-changing to metoprolol when necessary by mouth dosing, one-time doses diltiazem/digoxin 09/26, started on metoprolol 09/26 with good results in increasing from 50 to 75 mg twice a day and monitoring blood pressure. - Tele - TSH 1.3 09/26 - Echo EF 30-40% unchanged 09/26 # acute/chronic systolic CHF, EF stable approximately 30-40% - Stopping HCTZ to give room for BP control, furosemide twice a day 09/26 - Strict I/O and daily weight #ac/ckd3 Baseline CR 1.4, now 1.7, follow closely while diuresing # hypertension. stable-patient rate control medications for now and diuretics. Stopping HCTZ/lisinopril adding when necessary hydralazine would reach for amlodipine if blood pressure still high. # Anticoagulation with Coumadin - INR subtherapeutic on admission - SC heparin for DVT PPx for now - Continue with Coumadin (dose adjustment per pharmacy) - Followup daily INR # History of colon cancer post resection. Presumed stable - Further followup as outpatient Expected length of hospital stay is greater than 2 midnights and likely 2-3 days GI Prophylaxis: Not indicated VTE Prophylaxis: Sub-Q Heparin (Unfractionated) VTE Mechanical Devices: Venous Foot Pump Resuscitation Status: DNR/DNI:Do Not Resuscitate/Intubate (discussed and verified with patient) Keon Dee MD Sep 27, 2016 15:43
--- NOTE | 2016-09-27 17:45 | NUR ---
No complaints Pt in great spirits. Denied pain. States to be ready for discharge. Tele notes HR within 80-90 BPM.
[2016-09-28 01:43] VITALS: BP 133/72; PULSE 62; RESP 16; O2SAT 94
--- NOTE | 2016-09-28 04:13 | NUR ---
Mobility Pt. Ind. with ambulation and uses FWW, no discomfort voiced this shift, slept most of the night, Vitals stable, afebrile, call light in reach, hourly checks and will continue to monitor.
[2016-09-28 04:45] VITALS: BP 126/74; PULSE 99; RESP 16; O2SAT 93
[2016-09-28 05:54] VITALS: PULSE 74
[2016-09-28 06:20] LABS: BASOPHILS % (AUTO) 0.3 % (0-3); EOSINOPHILS % (AUTO) 3.9 % (0-5); MONOCYTES % (AUTO) 13.1 % (4-12); Mean Corpuscular Hemoglobin 30.4 pg (27.0-35.0); Mean Corpuscular Volume 93.4 fL (81-100); NEUTROPHILS % (AUTO) 63.3 % (40-74); Platelet Count 221 bil/L (150-400)
[2016-09-28 06:29] LABS: INR 2.47 ratio
[2016-09-28 06:36] LABS: Magnesium 2.7 mg/dL (1.6-2.6)
[2016-09-28] MEDS: MeTOProlol XL 50 mg ER24 Tablet PO SCH (08:57)
--- NOTE | 2016-09-28 09:00 | NUR ---
BRADY signed. RENATA Garcia
--- NOTE | 2016-09-28 09:05 | NUR ---
Social Work-readiness for discharge: Data:EMR Reviewed. Pt is on day 3 of hospitalization for AFIB with RVR per H&P. Pt is likely medically stable later today or tomorrow. Per RN notes, pt has been up independent in her room. SW confirmed with pt at bedside, home no needs. Pt resides at [facility]. Pt's daughter Marsha to provide transport home and be in the area from [place] until Friday to help. No anticipated discharge needs. SW will continue to follow if needs arise. Assessment:Pt who is independent at baseline. Plan:Pt to discharge back to [place] when medically stable. No anticipated discharge needs. SW will continue to follow if needs arise. RENATA Garcia
[2016-09-28 09:13] VITALS: BP 128/82; PULSE 95; RESP 18; O2SAT 95
[2016-09-28 11:02] VITALS: PULSE 72
--- NOTE | 2016-09-28 11:42 | PCM.DIMED ---
Discharge Instructions Date of Service Sep 28, 2016 Dates of Hospitalization September 25, 2016 at 14:43 Discharge Diagnosis Discharge Diagnosis Acute CHF, atrial fibrillation with rapid ventricular response, acute kidney injury on chronic kidney disease stage III Diet Discharge Diet: Heart Healthy Activity Discharge Activity: No restrictions Call your provider Call your provider for: Shortness of breath, Chest pain Patient Instructions Patient Instructions We should have a referral to a CHF clinic as well as lock expert. Please weigh yourself daily and make a log noting breathing symptoms, weight, and presence/lack of edema Follow-up Provider: Colt Hussein MD Follow-up with PCP in: Other (within one week) Provider: Iliana Glass MD Follow-up in: Other (or any other lock expert next available.) CHF Clinic: 1 week Keon Dee MD Sep 28, 2016 11:42
[2016-09-28] MEDS ORDERED: FURO40TA4 PO (11:50)
[2016-09-28] MEDS ORDERED: METO-272 PO (11:50)
[2016-09-28] MEDS ORDERED: POTA10TA38 PO (11:50)
--- NOTE | 2016-09-28 11:58 | NUR ---
Social Work-discharge: Data:EMR Reviewed. Pt is on day 3 of hospitalization for AFIB with RVR per H&P. Pt is medically stable for discharge today. Pt resides at [facility] and plans to return there at discharge. Per RN notes, pt has been up independent in her room. SW confirmed plan of back to [facility] today with pt and daughter to provide transport. No other discharge needs identified. All updated and agreeable to plan. Assessment:pt who is independent at baseline. Plan:Pt to discharge back to [facility] today via POV. No other discharge needs identified. All updated and agreeable to plan. RENATA Garcia
--- NOTE | 2016-09-28 14:40 | NUR ---
Discharge Patient tele Afib in the 70s. Patient denies chest pain/discomfort, dizziness, SOB. VSS. Discharge instructions and medication education printed and reviewed verbally with patient and daughter. All questions answered. IV DC'd intact. Patient left unit via wc accompanied by her daughter and discharged home via personal vehicle.
--- NOTE | 2016-09-28 17:33 | PCM.DC.MED ---
Discharge Summary Date of Service Sep 28, 2016 Dates of Hospitalization Date of Hospital Admission September 25, 2016 at 14:43 Date of Discharge: Sep 28, 2016 Providers: Admitting Physician: Richard Ross Primary Care Physician: Colt Hussein MD Attending Physician: Richard Ross Diagnosis at Time of Discharge Diagnosis at Time of Discharge Acute CHF, atrial fibrillation with rapid ventricular response, acute kidney injury on chronic kidney disease stage III Consultations None Procedures XRay, CTs & MRIs Date of Service: 09/25/16 1043 PROCEDURE: X-RAY CHEST ONE VIEW, PORTABLE ([id number]) IMPRESSION: Small left pleural effusion with adjacent atelectasis. Diffuse interstitial changes Dictated by: Vic Irving M.D. on 09/25/2016 at 12:07 Approved by: Vic Irving M.D. on 09/25/2016 at 12:09 ECG 12 Lead afib at rate of about 120bpm Cardiac Echo Impression Echocardiogram Report: Pablo Underwood on 09/26/2016 Left ventricular systolic function is moderately reduced with the left ventricular ejection fraction visually estimated to be 30-40% with considerable aljr-ih-brxo variability and appears slightly worse compared to the previous study. There is moderate global hypokinesis without obvious focal wall motion abnormalities. The left ventricle is normal in size. 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 The right ventricle is normal size but right ventricular systolic function is mildly reduced and appears slightly worse compared to the previous study. There is moderate-severe pulmonary hypertension with the right ventricular systolic pressure estimated at 58 mmHg assuming a right atrial pressure of 15 mm Hg, which is higher compared to the previous study. The left atrium is severely dilated and has significantly increased in size since the prior echo exam. The right atrium is mildly dilated but appears unchanged compared to the previous study. There is moderate mitral regurgitation, moderate to severe tricuspid regurgitation, and mild aortic regurgitation that all appear essentially unchanged compared to the previous study. There is a moderate left-sided pleural effusion and a small right-sided pleural effusion which are new compared to the previous study. The patient was in atrial fibrillation with heart rates between 74-123 bpm during the exam which is slightly slower compared to the previous study. Brief History 85-year-old female with a history of chronic atrial fibrillation for 20+ years, on Coumadin, colon cancer post right colon resection presents with 4 days of increasing shortness of breath and generalized weakness. She also reports increase weight and bilateral lower extremity edema over the past few months. Her symptoms are exacerbated with exertion. She called her PCP's office today and was instructed to come to the hospital. On presentation to the ED she was found to be in Afirb with RVR. She reportedly received 3 rounds of IV Lopressor before lowering her heart rate. IV Lasix was ordered but not given yet. She denies any lower extremity pain or pleuritic chest pain. She does report chest pain with exertion that has been going on for the past 2 years and is not any worse than usual. She denies any chest pain at rest. Hospital Course 85-year-old female with a history of chronic atrial fibrillation on Coumadin presents with 4 days of increasing shortness of breath with exertion and generalized weakness. 09/26 medically complex patient meeting for first time. Patient still having A. fib with RVR, giving IV diltiazem when necessary with 1 time dose digoxin, changing Coreg to metoprolol with when necessary dosing, changing to furosemide stopping hydrochlorothiazide to allow for or vigorous BP control with heart rate control. 09/27 patient diuresing well, heart rate under much better control, blood pressure still high I am increasing her metoprolol one more time probably going to discharge her 09/28. Renal function stable cr 1.67, I think I will decrease/ stop the furosemide today. I am keeping her here to determine what the optimal rate of diuresis will be. I think it will be furosemide 40 mg daily for now and to watch the blood pressure. Explained this to both the patient and her daughter who were at the bedside. 09/28 agent is breathing well her blood pressure and heart rate have been well controlled. Renal function still not normalizing this will require follow-up in the outpatient setting. We may need to discontinue Lasix altogether for a few days. Magnesium was over replaced and supratherapeutic at 2.7 today. She is being discharged home stable improved condition I have stopped all of her blood pressure medications #Hypomagnesemia-replace and monitor #afib w/ RVR-changing to metoprolol when necessary by mouth dosing, one-time doses diltiazem/digoxin 09/26, started on metoprolol 09/26 with good results in increasing from 50 to 75 mg twice a day and monitoring blood pressure. - Tele - TSH 1.3 09/26 - Echo EF 30-40% unchanged 09/26 # acute/chronic systolic CHF, EF stable approximately 30-40% - Stopping HCTZ to give room for BP control, furosemide twice a day 09/26 - Strict I/O and daily weight #ac/ckd3 Baseline CR 1.4, now 1.7, follow closely while diuresing # hypertension. stable-patient rate control medications for now and diuretics. Stopping HCTZ/lisinopril adding when necessary hydralazine would reach for amlodipine if blood pressure still high. # Anticoagulation with Coumadin - INR subtherapeutic on admission - SC heparin for DVT PPx for now - Continue with Coumadin (dose adjustment per pharmacy) - Followup daily INR # History of colon cancer post resection. Presumed stable - Further followup as outpatient Expected length of hospital stay is greater than 2 midnights and likely 2-3 days Exam Vital Signs (Last) Date Time Temp Pulse Resp B/P Pulse Ox O2 Delivery O2 Flow Rate FiO2 09/28/16 11:02 72 09/28/16 09:13 36.5 18 128/82 95 Room Air 09/26/16 13:36 2.00 Exam Gen.- A+ O 3 no apparent distress. Eyes- open conjunctiva clear, pupils equal nonicteric ENT- ears normal, nose normal hearing intact Neck- supple/trach midline CVS- RRR Lungs respiratory rate regular and nonlabored GI- generous pannus Musc- moving 4 no obvious deformity Neuro- cranial nerves II through XII intact to gross examination, nonfocal Skin- warm and dry, no rashes/lesions/wounds noted Psych- pleasant and appropriate, Test 09/25/16 11:39 09/25/16 12:00 09/25/16 17:43 09/25/16 17:59 Total Bilirubin 0.6mg/dL (0.0-1.2) Aspartate Amino Transf (AST/SGOT) 32U/L (0-50) Alanine Aminotransferase (ALT/SGPT) 37U/L (0-32) Alkaline Phosphatase 140U/L (25-165) Total Protein 7.4g/dL (6.4-8.4) Albumin 4.1g/dL (3.4-5.0) Hold Diallo Top Tube Received (Received) Hold Urine Received (Received) Urine Color Yellow (YELLOW) Urine Appearance Clear (CLEAR,HAZY) Urine pH 5.0 (5.0-8.0) Urine Specific [place] 1.020 (1.003-1.035) Urine Protein Tracemg/dL (NEG,TRACE) Urine Glucose (UA) Negativemg/dL (NEGATIVE) Urine Ketones Negativemg/dL (NEGATIVE) Urine Occult Blood Trace (NEGATIVE) Urine Nitrite Negative (NEGATIVE) Urine Bilirubin Negative (NEGATIVE) Urine Urobilinogen Normalmg/dL (NORMAL) Urine Leukocyte Esterase Negative (NEGATIVE) Urine RBC 0-2/hpf (0-2) Urine WBC 0-5/hpf (0-5) Urine Epithelial Cells Few/hpf (NONE-MOD) Urine Crystals None seen (NONE SEEN) Urine Bacteria None/hpf (NONE-FEW) Urine Hyaline Casts None/lpf (NONE) Urine Granular Casts None seen (NONE SEEN) Urine Waxy Casts None seen (NONE SEEN) Urine Red Blood Cell Casts None seen (NONE SEEN) Urine White Blood Cell Casts None seen (NONE SEEN) Urine Mucus None seen (None Seen) Urine Trichomonas None seen (NONE SEEN) Urine Yeast None (NONE SEEN) Urinalysis Comment None Urine Culture Reflexed Not indicated Test 09/26/16 06:00 09/28/16 00:35 09/28/16 05:45 Pro-B-Type Natriuretic Peptide 75559zz/mL (0-738) Thyroid Stimulating Hormone (TSH) 1.260uIU/mL (0.450-4.500) Troponin T 0.010ug/L (0.0-0.011) White Blood Count 10.2th/mm3 (3.8-10.1) Red Blood Count 4.70mil/mm3 (3.90-5.20) Hemoglobin 14.3g/dL (12.0-15.6) Hematocrit 43.9% (35.0-46.0) Mean Corpuscular Volume 93.4fL (81-100) Mean Corpuscular Hemoglobin 30.4pg (27.0-35.0) Mean Corpuscular Hemoglobin Concent 32.6% (32.0-37.0) Red Cell Distribution Width 13.5% (12.3-15.4) Platelet Count 221bil/L (150-400) Neutrophils (%) (Auto) 63.3% (40-74) Lymphocytes (%) (Auto) 19.3% (14-46) Monocytes (%) (Auto) 13.1% (4-12) Eosinophils (%) (Auto) 3.9% (0-5) Basophils (%) (Auto) 0.3% (0-3) Prothrombin Time 26.9sec (8.1-12.5) Prothromb Time International Ratio 2.47ratio Sodium Level 140mEq/L (134-144) Potassium Level 4.0mEq/L (3.5-5.2) Chloride Level 92mEq/L (97-108) Carbon Dioxide Level 32mmol/L (18-29) Blood Urea Nitrogen 48mg/dL (8-27) Creatinine 1.79mg/dL (0.57-1.00) Estimat Glomerular Filtration Rate 39mL/min (>59) Glucose Level 100mg/dL (60-99) Calcium Level 10.0mg/dL (8.5-10.1) Magnesium Level 2.7mg/dL (1.6-2.6) Discharge Medications Discharge Medications Furosemide (Furosemide) 40 Mg Tablet 40 MG PO DAILY Prescribed by: ALLIE TELLEZ MD Latanoprost (Latanoprost) 2.5 Ml Drops 1 GTT OP HS (Reported) Metoprolol Succinate ER (Metoprolol Succinate ER) 50 Mg Tab.er.24h 75 MG PO BID Prescribed by: ALLIE TELLEZ MD Potassium Chloride (Potassium Chloride) 10 Meq Tab.er.prt 10 MEQ PO DAILY Prescribed by: ALLIE TELLEZ MD Warfarin Sodium (Coumadin) 2.5 Mg Tablet 2.5 MG PO Tu (Reported) Warfarin Sodium (Coumadin) 5 Mg Tablet 5 MG PO [id number] (Reported) Followup Plan Disposition: Patient discharged home Follow-up plan Patient should seen either in CHF clinic or by PCP/director of laboratory operations within the next week she also will need basic metabolic and magnesium to follow-up on electrolyte abnormalities and renal function may need to hold furosemide altogether Discharge Diet: Heart Healthy Discharge Activity: No restrictions Patient Instructions We should have a referral to a CHF clinic as well as director of laboratory operations. Please weigh yourself daily and make a log noting breathing symptoms, weight, and presence/lack of edema Follow-up Provider: Stickle,H Blaine MD Follow-up with PCP in: Other (within one week) Provider: Iliana Glass MD Follow-up in: Other (or any other director of laboratory operations next available.) CHF Clinic: 1 week Time spent Greater than 30 minutes Attending Statement Heart rate was well-controlled at time of discharge but this patient needs close follow-up due to renal failure, electrolyte abnormalities and follow-up on blood pressure by 10/04 for sure. Either CHF clinic, PCP or cardiology. copies to: Iliana Glass MD; Colt Hussein MD, Andris E MD Sep 28, 2016 17:33
== END 2016-09-28 14:20 | disposition home or self-care (01) | DRG 292 ==
LOC: SED 10:28 → MPC 14:43
PROVIDERS: ADMIT Internal Medicine; ATTEND Internal Medicine
DX: I50.23 Acute on chronic systolic (congestive) heart failure (principal); N17.9 Acute kidney failure, unspecified; I48.2 Chronic atrial fibrillation; Z79.01 Long term (current) use of anticoagulants; N18.3 Chronic kidney disease, stage 3 (moderate); Z85.038 Personal history of other malignant neoplasm of large intestine; Z87.891 Personal history of nicotine dependence; I12.9 Hypertensive chronic kidney disease with stage 1 through stage 4 chronic kidney disease, or unspecified chronic kidney disease; Z66 Do not resuscitate; Z51.5 Encounter for palliative care; R79.1 Abnormal coagulation profile